=== PATIENT | female | born 1995 | race African-American/Black ===

== ENCOUNTER 2024-05-25 08:33 | Emergency (ER) | payer OTHER ==
[~2024-05-25] VITALS: Ht 157.5 cm; Wt 56.7 kg
[2024-05-25] MEDS: IV NS 0.9% 1,000 ML BAG IV ONE ×2 (09:04→10:28)
[2024-05-25 09:07] LABS: BASOPHILS % (AUTO) 0.2 % (0.0-2.0); EOSINOPHILS % (AUTO) 0.2 % (0.0-6.0); HEMATOCRIT 41 % (33-45); HEMOGLOBIN 13.9 g/dL (11.5-14.8); LYMPHOCYTES # (AUTO) 0.2 K/uL (0.8-4.8); LYMPHOCYTES % (AUTO) 2.1 % (20.0-44.0); MEAN CORPUSCULAR HEMOGLOBIN 31 PG (26.0-33.0); MEAN CORPUSCULAR HGB CONC 34 g/dl (31.0-36.0); MEAN CORPUSCULAR VOLUME 91 fL (82-100); MONOCYTES # (AUTO) 0.4 K/uL (0.1-1.30); MONOCYTES % (AUTO) 5.4 % (2.0-12.0); NEUTROPHILS # (AUTO) 7.6 K/uL (1.8-8.9); NEUTROPHILS % (AUTO) 92.1 % (43.0-81.0); PLATELET COUNT (AUTO) 185 K/uL (150-450); RED BLOOD CELL COUNT(AUTO) 4.47 MIL/uL (4.0-5.2); RED CELL DISTRIBUTION WIDTH 12.8 % (11.5-15.0); WHITE BLOOD COUNT (AUTO) 8.2 K/uL (4.3-11.0)
[2024-05-25 09:14] LABS: ADD URINE CULTURE NO; APPEARANCE,URINE CLOUDY (CLEAR); BACTERIA,URINE Rare /HPF (None Seen); BILIRUBIN,URINE NEGATIVE (NEGATIVE); BLOOD, URINE NEGATIVE Ery/uL (NEGATIVE); COLOR,URINE DARK YELLOW (YELLOW); KETONES,URINE 1+ mg/dL (NEGATIVE); LEUKOCYTE ESTERASE ,URINE NEGATIVE (NEGATIVE); NITRITE, URINE NEGATIVE (NEGATIVE); PH,URINE 7.5 (5.0-8.0); PREGNANCY TEST URINE QUAL NEGATIVE (NEGATIVE); PROTEIN,URINE 1+ mg/dl (NEGATIVE); RBC,URINE 0-2 /HPF (0-2); SQUAMOUS EPITHELIAL CELL,UR Many /HPF (None Seen); UGLUCOSE NEGATIVE (NEGATIVE); WBC,URINE 0-2 /HPF (0-3)
[2024-05-25 09:19] LABS: CALCIUM, SERUM 9.1 mg/dL (8.5-10.1); CREATININE 0.9 mg/dL (0.6-1.3); POTASSIUM 3.5 mmol/L (3.5-5.1)
[2024-05-25 09:24] LABS: ALBUMIN 4.1 g/dL (3.4-5.0); BILIRUBIN,DIRECT 0.2 mg/dL (0.0-0.2); BILIRUBIN,TOTAL 1.1 mg/dL (0.2-1.0); TOTAL PROTEIN, SERUM 7.5 g/dL (6.4-8.2)
[2024-05-25] MEDS ORDERED: ONDANSETRON HCL/PF 4 MG/2 ML VIAL ONE (10:26)
[2024-05-25] MEDS: ONDANSETRON HCL/PF 4 MG/2 ML VIAL IV ONE (10:28)
[2024-05-25 10:30] VITALS: BP 107/67; TEMP 98.8; O2SAT 98
[2024-05-25] MEDS ORDERED: ONDA4TAB5 PO (10:32)
== END 2024-05-25 10:54 | disposition home or self-care (01) ==
LOC: ER 08:39
DX: K52.9 Noninfective gastroenteritis and colitis, unspecified (principal); R11.2 Nausea with vomiting, unspecified; R10.9 Unspecified abdominal pain
CPT/HCPCS: 99284; 96374; 96361; 85025; 80048; 83690; 80076; 84703; 81001; 36415; J2405; J7030 ×2

== ENCOUNTER 2024-10-22 20:35 | Emergency (ER) | payer OTHER ==
[~2024-10-22] VITALS: Ht 160 cm; Wt 56.7 kg
[~2024-10-22 20:35] MED LIST: ONDA4TAB5 PO
[2024-10-22 21:36] VITALS: BP 104/68; TEMP 97.8
[2024-10-22 21:45] VITALS: O2SAT 99
[2024-10-22] MEDS ORDERED: FLUT16SP16 BNOSTRILS (21:46)
[2024-10-22] MEDS ORDERED: AMOX-430 PO (21:46)
== END 2024-10-22 22:00 | disposition home or self-care (01) ==
LOC: ER 20:40
DX: J32.9 Chronic sinusitis, unspecified (principal)

== ENCOUNTER 2025-02-16 12:12 | Emergency (ER) | payer OTHER ==
[~2025-02-16] VITALS: Ht 162.6 cm; Wt 60.3 kg
[~2025-02-16 12:12] MED LIST changes: +AMOX-430 PO; +FLUT16SP16 BNOSTRILS
[2025-02-16] MEDS: IV NS 0.9% 1,000 ML BAG IV ONE (13:00)
[2025-02-16] MEDS: FAMOTIDINE/PF INJ 20 MG/2 ML VIAL IV ONE (13:00)
[2025-02-16] MEDS: METOCLOPRAMIDE HCL 10 MG/2 ML VIAL IV ONE (13:05)
[2025-02-16 13:06] LABS: APPEARANCE,URINE CLEAR (CLEAR); BILIRUBIN,URINE Negative (NEGATIVE); BLOOD, URINE Moderate Ery/uL (NEGATIVE); COLOR,URINE YELLOW (YELLOW); KETONES,URINE Negative (NEGATIVE); LEUKOCYTE ESTERASE ,URINE Negative (NEGATIVE); PROTEIN,URINE Negative (NEGATIVE); UGLUCOSE Negative (NEGATIVE); UROBILINOGEN,URINE 0.2 EU/dL (0.2)
[2025-02-16 13:09] LABS: NITRITE, URINE NEGATIVE (NEGATIVE)
[2025-02-16] MEDS: PANTOPRAZOLE 40 MG VIAL IV ONE (13:10)
[2025-02-16] MEDS ORDERED: KETOROLAC TROMETHAMINE 15 MG/ML VIAL ONE (13:11)
[2025-02-16 13:12] LABS: BASOPHILS % (AUTO) 0.4 % (0.0-2.0); EOSINOPHILS # (AUTO) 0.1 K/uL (0.0-0.7); EOSINOPHILS % (AUTO) 0.8 % (0.0-6.0); HEMATOCRIT 40 % (33-45); HEMOGLOBIN 13.7 g/dL (11.5-14.8); LYMPHOCYTES # (AUTO) 0.9 K/uL (0.8-4.8); LYMPHOCYTES % (AUTO) 11.2 % (20.0-44.0); MEAN CORPUSCULAR HEMOGLOBIN 31 PG (26.0-33.0); MEAN CORPUSCULAR HGB CONC 34 g/dl (31.0-36.0); MEAN CORPUSCULAR VOLUME 92 fL (82-100); MONOCYTES # (AUTO) 0.9 K/uL (0.1-1.30); MONOCYTES % (AUTO) 11.7 % (2.0-12.0); NEUTROPHILS # (AUTO) 5.7 K/uL (1.8-8.9); NEUTROPHILS % (AUTO) 75.9 % (43.0-81.0); PLATELET COUNT (AUTO) 218 K/uL (150-450); RED CELL DISTRIBUTION WIDTH 13.4 % (11.5-15.0); WHITE BLOOD COUNT (AUTO) 7.6 K/uL (4.3-11.0)
[2025-02-16] MEDS ORDERED: METOCLOPRAMIDE HCL 10 MG/2 ML VIAL ONE (13:12)
[2025-02-16] MEDS ORDERED: FAMOTIDINE/PF INJ 20 MG/2 ML VIAL IV ONE (13:12)
[2025-02-16] MEDS ORDERED: PANTOPRAZOLE 40 MG VIAL ONE (13:12)
[2025-02-16 13:19] LABS: CALCIUM, SERUM 9.3 mg/dL (8.5-10.1); CREATININE 0.6 mg/dL (0.6-1.3); POTASSIUM 3.9 mmol/L (3.5-5.1)
[2025-02-16 13:25] LABS: ALBUMIN 3.9 g/dL (3.4-5.0); BILIRUBIN,DIRECT 0.2 mg/dL (0.0-0.2); BILIRUBIN,TOTAL 0.6 mg/dL (0.2-1.0); TOTAL PROTEIN, SERUM 7.8 g/dL (6.4-8.2)
[2025-02-16 13:37] LABS: ADD URINE CULTURE NO; BACTERIA,URINE Rare /HPF (None Seen); MUCUS,URINE Few /LPF (None Seen); SQUAMOUS EPITHELIAL CELL,UR Many /HPF (None Seen); WBC,URINE 0-2 /HPF (0-3)
[2025-02-16] MEDS ORDERED: FAMO20TA80 PO (13:44)
[2025-02-16] MEDS ORDERED: ONDA4TAB5 PO (13:44)
[2025-02-16] MEDS ORDERED: PANT40TA49 PO (13:44)
[2025-02-16] MEDS: KETOROLAC TROMETHAMINE 15 MG/ML VIAL IV ONE (13:45)
[2025-02-16 15:27] VITALS: BP 126/65; TEMP 98; O2SAT 100
== END 2025-02-16 15:27 | disposition home or self-care (01) ==
LOC: ER 12:15
DX: K52.9 Noninfective gastroenteritis and colitis, unspecified (principal); R11.2 Nausea with vomiting, unspecified; Z79.899 Other long term (current) drug therapy; Z60.2 Problems related to living alone; R10.2 Pelvic and perineal pain
CPT/HCPCS: 99284; 96374; 96375; 96361; 85025; 80048; 83690; 80076; 81001; 36415; 84702; J1885; J1308; J2765; J7030; J2470

== ENCOUNTER 2025-08-02 15:11 | Emergency (ER) | payer OTHER ==
[~2025-08-02] VITALS: Ht 162.6 cm; Wt 59.0 kg
[~2025-08-02 15:11] MED LIST changes: +FAMO20TA80 PO; +PANT40TA49 PO
[2025-08-02 15:19] VITALS: BP 111/61; TEMP 98; O2SAT 97
[2025-08-02] MEDS ORDERED: SODI88SP18 BNOSTRILS (15:37)
[2025-08-02] MEDS ORDERED: AMOX-430 PO (15:37)
== END 2025-08-02 15:45 | disposition home or self-care (01) ==
LOC: ER 15:12
DX: J32.9 Chronic sinusitis, unspecified (principal); Z79.899 Other long term (current) drug therapy; Z60.2 Problems related to living alone